=== PATIENT | female | born 1985 | race Caucasian/White ===

== ENCOUNTER 2017-10-31 00:39 | Emergency (ER) | payer MEDICAID ==
[2016-06-01 06:04] VITALS: BMI 48.2
[~2017-10-31 00:39] MED LIST: BUSPAR10 MG PO; FLAGYL500 MG PO; IBUPROFEN600 MG PO; PERCOCET 5-3251 TAB PO; STRATTERA60 MG PO
[2017-10-31 01:18] LABS: BASOPHILS 0.2 % (0-2); EOSINOPHILS 0.6 % (0-7); HEMATOCRIT 38.2 % (36.0-48.0); HEMOGLOBIN 12.4 g/dL (12-16); IMMATURE GRANULOCYTES 0.3 % (0-5); LYMPHOCYTES 19.9 % (15-50); MCHC 32.5 g/dL (31.0-37.0); MCV 80.1 fL (80.0-100.0); MEAN PLATELET VOLUME 10.5 fL (7.4-10.4); MONOCYTES 6.6 % (2-11); NEUTROPHILS 72.4 % (40-80); RBC 4.77 10x6/uL (4.00-5.40); WBC 10.8 10x3/uL (4.8-10.8)
[2017-10-31 01:22] LABS: PLATELET COUNT 263 10x3/uL (130-400)
[2017-10-31 01:47] LABS: ALBUMIN 3.5 g/dL (3.4-5.0); ALKALINE PHOSPHATASE 98 U/L (46-116); ALT (SGPT) 28 U/L (10-68); BILIRUBIN - TOTAL 0.18 mg/dL (0.2-1.3); CALC OSMOLALITY 280 mosm/kg (275-300); CALCIUM 8.9 mg/dL (8.5-10.1); CARBON DIOXIDE 26.5 mmol/L (21.0-32.0); CHLORIDE - SERUM 104 mmol/L (98-107); GLUCOSE 117 mg/dL (74-106); POTASSIUM - SERUM 4.3 mmol/L (3.5-5.1); PROTEIN - SERUM 7.6 g/dL (6.4-8.2); SODIUM 139 mmol/L (136-145); UREA NITROGEN 17 mg/dL (7-18); eGFR NON AFRICAN AMERICAN 69 mL/min (90-120)
[2017-10-31 01:50] LABS: PRO BNP 38 pg/mL (0-125)
[2017-10-31 01:53] LABS: TROPONIN-I < 0.017 ng/mL (0.000-0.060)
[2017-10-31 02:20] LABS: APPEARANCE CLEAR (CLEAR); BILIRUBIN NEGATIVE (NEGATIVE); COLOR YELLOW (YELLOW); GLUCOSE NEGATIVE (NEGATIVE); KETONE NEGATIVE (NEGATIVE); NITRITE NEGATIVE (NEGATIVE); PROTEIN NEGATIVE (NEGATIVE); SPECIFIC GRAVITY 1.015 (1.005-1.020); UROBILINOGEN NORMAL (NORMAL)
[2017-10-31 02:26] LABS: UDS - AMPHET NEGATIVE QUAL (NEGATIVE); UDS - BARB NEGATIVE QUAL (NEGATIVE); UDS - BENZO NEGATIVE QUAL (NEGATIVE); UDS - COCAINE NEGATIVE QUAL (NEGATIVE); UDS - OPIATE NEGATIVE QUAL (NEGATIVE); UDS - PCP NEGATIVE QUAL (NEGATIVE); UDS - THC NEGATIVE QUAL (NEGATIVE)
== END 2017-10-31 02:35 | disposition home or self-care (01) ==
LOC: D.ER 00:39
PROVIDERS: Family Medicine
DX: R06.00 Dyspnea, unspecified (principal); R00.0 Tachycardia, unspecified

== ENCOUNTER 2017-10-31 17:53 | Emergency (ER) | payer MEDICAID ==
[2016-06-01 06:04] VITALS: BMI 48.2
== END 2017-10-31 20:30 | disposition home or self-care (01) ==
LOC: D.ER 17:53
DX: R00.2 Palpitations (principal); R07.89 Other chest pain